=== PATIENT | female | born 1960 | race Caucasian/White ===

== ENCOUNTER 2022-06-09 13:40 | Emergency (ER) | payer MEDICAID, SELFPAY ==
[2022-06-09 13:47] VITALS: BP 109/74; PULSE 103; RESP 16; TEMP 37.1; O2SAT 97; BMI 28.0
--- NOTE | 2022-06-09 14:15 | CRLHL7_ITS ---
For Patients: As a result of the Century Cures Act, medical imaging exams and procedure reports are released immediately into your electronic medical record. You may view this report before your referring provider. If you have questions, please contact your health care provider. CLINICAL HISTORY: Pain TECHNIQUE: A compression venous ultrasound exam was performed of the right lower extremity using gutierrez-scale imaging, color Doppler and spectral Doppler analysis. FINDINGS: Sonographic imaging of the right lower extremity demonstrates normal compressibility and color Doppler venous blood flow within the common femoral vein, deep femoral vein, and the proximal greater saphenous vein. Within the thigh, the femoral vein is patent and compressible. At a lower level, the popliteal and posterior tibial veins also show normal compressibility and color Doppler venous blood flow. Limited imaging of the contralateral groin demonstrates a normal spectral waveform and color Doppler venous blood flow within the left common femoral vein. IMPRESSION: No evidence of deep vein thrombosis within the right lower extremity. Dictated by Joanie Horne MD @ 06/09/2022 3:31:54 PM (Electronically Signed)
--- NOTE | 2022-06-09 14:16 | CRLHL7_ITS ---
For Patients: As a result of the Cures Act, medical imaging exams and procedure reports are released immediately into your electronic medical record. You may view this report before your referring provider. If you have questions, please contact your health care provider. INDICATION: Chest pain. TECHNIQUE: Portable AP chest radiograph. COMPARISON: None available. FINDINGS: No focal pulmonary opacity, pneumothorax, or pleural effusion. Normal cardiac and mediastinal contours. IMPRESSION: No acute cardiopulmonary findings. Dictated by Declan Callaway MD @ 06/09/2022 3:13:40 PM Dictated by: Declan Callaway MD @ 06/09/2022 15:13:50 (Electronically Signed)
--- NOTE | 2022-06-09 14:18 | ED_ITS ---
HPI - General Adult General Date Seen: 06/09/22 Chief complaint: Extremity Pain/Injury, Lower Stated complaint: Pain and Discoloration Post Surgery Time Seen by Provider: 06/09/22 13:41 Source: patient and family History of Present Illness HPI narrative: Patient is a 61-year-old woman who is here with her daughter, she had a right total knee replacement on Friday, 5 days ago at [address] She reports that the surgery had gone well, pain was controlled with Tylenol, and till overnight last night when she developed more significant pain and swelling in the leg. She has had bruising in the groin area where she had the nerve block, has had a little bit of bruising around the knee itself, and now has significant swelling in the calf and foot. She has minimal pain in the knee itself, but now has pain in the leg and foot. She also has some pain in her left chest which is localized just underneath the breast. She did have influenza and COVID several weeks ago, and says she had some pain in this area associated with coughing at the time of her illness. It had improved, but came back yesterday. This pain is worsened with deep breath and with movement, as well as palpation. She has not had fevers or shortness of breath. She denies history of prior DVT. She has had a left knee replacement without incident. Related Data Home Medications Medication Instructions Recorded Confirmed acetaminophen 325 mg tablet mg 06/09/22 albuterol sulfate 2.5 mg/3 mL mg 06/09/22 (0.083 %) solution for nebulization albuterol sulfate 90 mcg/actuation inhalation 06/09/22 aerosol inhaler (Ventolin HFA) aspirin 81 mg tablet,delayed mg 06/09/22 release cefadroxil 500 mg capsule mg 06/09/22 citalopram 20 mg tablet mg 06/09/22 ipratropium 0.5 mg-albuterol 3 mg ml inhalation 06/09/22 (2.5 mg base)/3 mL nebulization soln oxycodone 5 mg tablet mg 06/09/22 Allergies Allergy/AdvReac Type Severity Reaction Status Date / Time cefaclor [From [facility]] Allergy blotches Verified 06/09/22 13:54 and swelling doxycycline Allergy Verified 06/09/22 13:56 Review of Systems Status of ROS: Reports: 10 or more systems reviewed and unremarkable except as noted in History and below [facility] Social History Smoking Status: Never smoker How often do you have a drink containing alcohol: never AUDIT-C Alcohol total score: 0 Non-prescribed substance use: denies use Exam Narrative: Exam Narrative: Vital signs as noted above. In general, an alert, nontoxic woman. Breathing easily. Head: Normocephalic, atraumatic. Eyes: Pupils are equal reactive. Extraocular movements are full. Conjunctivae are normal. ENT: Mucous membranes are moist. Throat is normal. Neck: Supple without lymphadenopathy. Heart: Regular rate and rhythm. No murmur or rub. Lungs: Clear bilaterally. No increased work of breathing, crackles or wheezes. Reproducible chest wall tenderness underneath the left breast without crepitus or subQ air. Abdomen: Soft and nontender. No organomegaly. Extremities: Left lower extremity is notable for multiple varicosities but no edema, erythema, tenderness. On the right, the surgical dressing is in place, there is some bruising noted posteriorly but I do not see any significant erythe ma. Area is nontender. She has a lot of bruising in the medial thigh, there is significant edema in the calf and foot. Pulses intact. Distal CMS normal. Mild tenderness throughout the leg distal to the knee. No erythema, warmth, fluctuance. Neurologic: Patient is alert and oriented to person and place. Speech is fluent. Face is symmetric. Moves all extremities equally. Affect: Normal. Skin: Warm and dry. Well perfused. Const: Vital Signs, click to edit/add: Vital Signs - 24 hr 06/09/22 13:47 06/09/22 15:20 06/09/22 15:53 Temperature 98.7 F 98.6 F Pulse Rate [Right Pulse Oximeter] 103 H 92 Respiratory Rate 16 14 Blood Pressure [Le ft Upper Arm] 109/74 117/72 Pulse Oximetry 97 97 Oxygen Delivery Me thod Room Air Documenting provider has reviewed patient's vital signs: yes Course Course Hospital Course: Initial plan is to do a Doppler of the right lower extremity. With regard to her chest pain, my suspicion for pulmonary embolism if the Doppler is negative is relatively low. She had pain in this area prior to the surgery, pain is clearly reproducible with palpation and movement. O2 sats when I was in the room were 100% on room air. I did elect to do a chest x-ray to rule out the possibility of an interval pneumonia, or to rule out the unlikely possibility of pneumothorax, pleural effusion, etc. By my review, chest x-ray was negative. Final radiology report was likewise negative. I do think this is chest wall related, likely muscular related to coughing. With regard to her leg, she does have evidence of bruising, edema may be related to postoperative bleeding. I do not see anything that suggest cellulitis. She had a right lower extremity Doppler which is read by Radiology as negative for DVT. For now, I recommended elevation, observation. If this is worsening, she should be re-evaluated. Recheck with orthopedic clinic this week, or if they are unavailable, return to the emergency department for worsening swelling, pain, redness, or new symptoms such as fever or chills. Vital Signs Vital signs: Initial Vital Signs Temperature 98.7 F 06/09/22 13:47 Temperature Source Oral 06/09/22 13:47 Pulse Rate 103 H 06/09/22 13:47 Respiratory Rate 16 06/09/22 13:47 Blood Pressure 109/74 06/09/22 13:47 Blood Pressure Mean 85 06/09/22 13:47 Blood Pressure Position Sitting 06/09/22 13:47 Pulse Oximetry 97 06/09/22 13:47 Oxygen Delivery Method 06/09/22 13:47 Vital Signs Temperature 98.7 F 06/09/22 13:47 Pulse Rate 103 H 06/09/22 13:47 Respiratory Rate 16 06/09/22 13:47 Blood Pressure 109/74 06/09/22 13:47 Pulse Oximetry 97 06/09/22 13:47 Oxygen Delivery Method 06/09/22 13:47 Temperature 98.6 F 06/09/22 15:53 Pulse Rate 92 06/09/22 15:20 Respiratory Rate 14 06/09/22 15:20 Blood Pressure 117/72 06/09/22 15:20 Pulse Oximetry 97 06/09/22 15:20 Oxygen Delivery Method 06/09/22 13:47 Discharge Plan Discharge Clinical Impression: Postoperative edema Patient Disposition: Home, Self-Care Condition: Stable Instructions: Leg Edema (ED) Additional Instructions: Continue with Tylenol, elevate as able. If you have worsening swelling, pain, or develop redness, fever, chills, or other new symptoms, call your orthopedic clinic. You should be re-evaluated urgently for these symptoms. If they cannot see you, return to the emergency department. Prescriptions: No Action acetaminophen 325 mg tablet ipratropium-albuterol 0.5 mg-3 mg(2.5 mg base)/3 mL solution for nebulization INHALATION albuterol sulfate 2.5 mg /3 mL (0.083 %) solution for nebulization Label Comments: USE 3 ML IN NEBULIZER EVERY 6 HOURS NEEDED FOR SHORTNESS OF BREATH aspirin 81 mg tablet,delayed release (DR/EC) cefadroxil 500 mg capsule citalopram 20 mg tablet Label Comments: TAKE 1 TABLET BY MOUTH IN THE MORNING albuterol sulfate [Ventolin HFA] 90 mcg/actuation HFA aerosol inhaler INHALATION Label Comments: INHALE 1 TO 2 PUFFS BY MOUTH EVERY 4 HOURS WHILE AWAKE oxycodone 5 mg tablet Follow Up/Referrals: Matt Harkins MD [Primary Care Provider] - Stand Alone Forms: [employer] Info Instructions
[2022-06-09] MEDS: ACETAMINOPHEN 500 MG TABLET 1000 MG PO (14:33)
[2022-06-09 15:20] VITALS: BP 117/72; PULSE 92; RESP 14; O2SAT 97
[2022-06-09 15:53] VITALS: TEMP 37
== END 2022-06-09 16:22 | disposition home or self-care (01) ==
PROVIDERS: Emergency Provider Emergency Medicine; PCP Orthopaedic Surgery
DX: R60.0 Localized edema (principal); L76.82 Other postprocedural complications of skin and subcutaneous tissue
CPT/HCPCS: 71045; 93971; 99284; A9270

== ENCOUNTER 2022-07-15 13:30 | Outpatient (RCR) | payer MEDICAID, SELFPAY | END 2022-10-24 16:06 | disposition home or self-care (01) | PROVIDERS: PCP Orthopaedic Surgery; Visit Provider Orthopaedic Surgery | DX: Z96.651 Presence of right artificial knee joint (principal); Z51.89 Encounter for other specified aftercare | CPT/HCPCS: 97110; 97112; 97116; 97140; 97162 ==

== ENCOUNTER 2023-02-24 09:56 | Emergency (ER) | payer MEDICAID, SELFPAY ==
[2023-02-24 10:08] VITALS: BP 152/93; PULSE 82; RESP 18; TEMP 36.7; O2SAT 97; BMI 25.7
[2023-02-24 10:22] LABS: Appearance Urine Clear (Clear); Bilirubin Urine Negative (Negative); Blood Urine Trace-intact (Negative); Color Urine Yellow (Yellow); Glucose Urine Negative (Negative); Ketones Urine Negative (Negative); Leukocyte Esterase Urine 1+ (Negative); Nitrite Urine Negative (Negative); Protein Urine Negative (Negative); Urobilinogen Urine 0.2 (0.2-1.0)
--- NOTE | 2023-02-24 10:31 | ED_ITS ---
HPI - Nausea/Vomiting/Diarrhea General Chief complaint: Diarrhea Stated complaint: watery diarrhea, vomiting, rash on hand Time Seen by Provider: 02/24/23 10:19 History of Present Illness HPI Narrative: This 62-year-old female called in to clinic and was told to come here. She has diarrhea with vomiting over the past 3 weeks. She reports intense crampy abdominal pain when passing diarrhea or vomiting. She does not report any fevers. She is not on any medications. She did have a knee replacement a few months ago and did take an antibiotic for a brief time afterwards. She does not report any blood in the toilet. Related Data Home Medications Medication Instructions Recorded Confirmed acetaminophen 325 mg tablet mg 06/09/22 albuterol sulfate 2.5 mg/3 mL mg 06/09/22 (0.083 %) solution for nebulization albuterol sulfate 90 mcg/actuation inhalation 06/09/22 aerosol inhaler (Ventolin HFA) aspirin 81 mg tablet,delayed mg 06/09/22 release cefadroxil 500 mg capsule mg 06/09/22 citalopram 20 mg tablet mg 06/09/22 ipratropium 0.5 mg-albuterol 3 mg ml inhalation 06/09/22 (2.5 mg base)/3 mL nebulization soln oxycodone 5 mg tablet mg 06/09/22 Previous Rx's Medication Instructions Recorded diphenoxylate-atropine 2.5 1 tab PO DAILY #10 tabs 02/24/23 mg-0.025 mg tablet (Lomotil) ondansetron HCl 4 mg tablet 4 mg PO Q6H #20 tabs 02/24/23 Allergies Allergy/AdvReac Type Severity Reaction Status Date / Time cefaclor [From [facility]] Allergy blotches Verified 06/09/22 13:54 and swelling doxycycline Allergy Verified 06/09/22 13:56 Review of Systems Status of ROS: Reports: 10 or more systems reviewed and unremarkable except as noted in History and below Narrative: Constitutional: No fevers. She reports a 6 lb weight loss. Eyes: No discharge. No vision changes. HENT: No congestion, no sore throat, no ear pain. Cardiovascular: No chest pain, no palpitations. Respiratory: No shortness of breath, no wheezes, no cough. Gastrointestinal: Crampy abdominal pain that occurs when vomiting or diarrhea. Genitourinary: No dysuria, no hematuria. Musculoskeletal: Normal range of motion. Skin: No rashes, no pruritis. Neurological: No dizziness, weakness, sensory change, speech change. Endo/Heme/Allergies: No bruising or bleeding. No polydipsia. Pysch: no suicidality, no anxiety, no insomnia. All other systems reviewed and are negative. [facility] Social History Smoking Status: Never smoker How often do you have a drink containing alcohol: never AUDIT-C Alcohol total score: 0 Non-prescribed substance use: denies use service: No Exam Narrative: Exam Narrative: Constitutional: Well-developed, well-nourished, no acute distress. HEENT: Normocephalic, atraumatic. Neck: Normal range of motion. Nontender. Supple. Heart: Regular. No murmurs. Normal rate. Intact distal pulses. Lungs: Clear to auscultation. No chest discomfort. No wheezes, rhonchi, or rales. Abdomen: Normal bowel sounds. Nontender. No rebound tenderness. Genitalia: Deferred. Back: No midline tenderness. Normal range of motion. Extremities: Normal range of motion. No injury. Skin: Intact. No rash. Warm. No erythema or pallor. Neurologic: No altered sensation. No weakness. Alert and oriented. Psychiatric: No suicidality. No anxiety or depression. No insomnia. Nursing notes and vitals signs are reviewed. Const: Vital Signs, click to edit/add: Vital Signs - 24 hr 02/24/23 10:08 Temperature 98.1 F Pulse Rate [Right Pulse Oximeter] 82 Respiratory Rate 18 Blood Pressure [Ri ght Upper Arm] 152/93 H Pulse Oximetry 97 Oxygen Delivery Me thod Room Air Course Vital Signs Vital signs: Initial Vital Signs Temperature 98.1 F 02/24/23 10:08 Temperature Source Temporal Artery Scan 02/24/23 10:08 Pulse Rate 82 02/24/23 10:08 Respiratory Rate 18 02/24/23 10:08 Blood Pressure 152/93 H 02/24/23 10:08 Blood Pressure Mean 112 H 02/24/23 10:08 Blood Pressure Position Sitting 02/24/23 10:08 Pulse Oximetry 97 02/24/23 10:08 Oxygen Delivery Method Room Air 08/28/23 10:08 Vital Signs Temperature 98.1 F 02/24/23 10:08 Pulse Rate 82 02/24/23 10:08 Respiratory Rate 18 02/24/23 10:08 Blood Pressure 152/93 H 02/24/23 10:08 Pulse Oximetry 97 02/24/23 10:08 Oxygen Delivery Method Room Air 02/24/23 10:08 Temperature 98.1 F 02/24/23 10:08 Pulse Rate 82 02/24/23 10:08 Respiratory Rate 18 02/24/23 10:08 Blood Pressure 152/93 H 02/24/23 10:08 Pulse Oximetry 97 02/24/23 10:08 Oxygen Delivery Method Room Air 02/24/23 10:08 MDM - Nausea/Vomiting/Diarrhea MDM Narrative Medical decision making narrative: This patient comes in reporting persistent vomiting and diarrhea symptoms for the past few weeks. An IV was established and she received a L of normal saline intravenously along with Zofran 4 mg. Her abdominal exam is reassuring. I did discuss the role of CT imaging which the patient declined in less indicated with lab results. Lab results do returned with reassuring findings also. This patient is okay to return home and did received prescription for Zofran and Lomotil. I advised her to use Imodium preferably for managing diarrhea but Lomotil can be used if needed. Lab Data Labs: Lab Results 02/24/23 02/24/23 Range/Units 10:15 10:50 WBC 4.97 (4.50-11.00) K/uL RBC 4.85 (4.00-5.20) m/uL Hgb 12.2 (12.0-16.0) gm/dL Hct 37.7 (33.0-51.0) % MCV 78 L (80-100) fL MCH 25 L (26-34) pg MCHC 32 (32-36) gm/dL RDW Coeff of Murali 12.6 (11.5-15.5) % Plt Count 312 (140-440) K/uL Neut % (Auto) 57.1 (42.0-72.0) % Lymph % (Auto) 29.0 (20-44) % [place] % (Auto) 10.1 (0.0-11.0) % Eos % (Auto) 3.2 (0.0-7.0) % Baso % (Auto) 0.0 (0.0-3.0) % Neut # (Auto) 2.80 (1.7-7.0) K/uL Lymph # (Auto) 1.40 (0.90-2.90) K/uL [place] # (Auto) 0.50 (0.00-0.90) K/UL Eos # (Auto) 0.20 (0.00-0.50) K/uL Baso # (Auto) 0.00 (0.00-0.30) K/uL Abs Immat Gran (auto) 0.00 (0.00-0.30) K/uL Imm/Tot Granulo (auto) 0.2 % Urine Color Yellow (Yellow) Urine Appearance Clear (Clear) Urine pH 7.0 (5.0-8.5) Ur Specific [place] 1.010 (1.000-1.030) Urine Protein Negative (Negative) Urine Glucose (UA) Negative (Negative) Urine Ketones Negative (Negative) Urine Blood Trace-intact A (Negative) Urine Nitrite Negative (Negative) Urine Bilirubin Negative (Negative) Urine Urobilinogen 0.2 (0.2-1.0) Ur Leukocyte Esterase 1+ A (Negative) Urine RBC 0-2 (0-2) Urine WBC 5-10 A (0-5) Ur Squamous Epith Cells Few (None-Few) Urine Bacteria Few A (None) Discharge Plan Discharge Clinical Impression: Gastroenteritis Patient Disposition: Home, Self-Care Condition: Stable Additional Instructions: Take medications as prescribed and needed. Is recommended to take a proton pump inhibitor such as omeprazole. Follow-up with primary MD or Gastroenterology Clinic if not improving. Return if worsening. Prescriptions: New ondansetron HCl 4 mg tablet 4 mg PO Q6H Qty: 20 0RF diphenoxylate-atropine [Lomotil] 2.5-0.025 mg tablet 1 tab PO DAILY Qty: 10 0RF No Action acetaminophen 325 mg tablet ipratropium-albuterol 0.5 mg-3 mg(2.5 mg base)/3 mL solution for nebulization INHALATION albuterol sulfate 2.5 mg /3 mL (0.083 %) solution for nebulization Patient Comments: USE 3 ML IN NEBULIZER EVERY 6 HOURS NEEDED FOR SHORTNESS OF BREATH aspirin 81 mg tablet,delayed release (DR/EC) cefadroxil 500 mg capsule citalopram 20 mg tablet Patient Comments: TAKE 1 TABLET BY MOUTH IN THE MORNING albuterol sulfate [Ventolin HFA] 90 mcg/actuation HFA aerosol inhaler INHALATION Patient Comments: INHALE 1 TO 2 PUFFS BY MOUTH EVERY 4 HOURS WHILE AWAKE oxycodone 5 mg tablet Follow Up/Referrals: Matt Harkins MD [Primary Care Provider] - Stand Alone Forms: [employer] Info Instructions
[2023-02-24 10:48] LABS: Bacteria Urine Few; RBC Urine 0-2 (0-2); Squamous Epithelial Cell Urine Few (None-Few)
[2023-02-24 12:18] LABS: Hematocrit 37.7 % (33.0-51.0); Hemoglobin* 12.2 gm/dL (12.0-16.0); Mean Corpuscular HGB Conc 32 gm/dL (32-36); Mean Corpuscular Hemoglobin 25 pg (26-34); Mean Corpuscular Volume 78 fL (80-100); Neutrophils Percent Auto 57.1 % (42.0-72.0); Platelet Count* 312 K/uL (140-440); RDW Coefficient of Variation % 12.6 % (11.5-15.5); Red Blood Count 4.85 m/uL (4.00-5.20); White Blood Count* 4.97 K/uL (4.50-11.00)
[2023-02-24 12:19] LABS: Eosinophils Percent Auto 3.2 % (0.0-7.0); Immature Granulocytes Pct Auto 0.2 %; Monocytes Percent Auto 10.1 % (0.0-11.0); Slide Review Reflex No
--- NOTE | 2023-02-24 13:54 | ED.NURSE ---
computers down, pt dc'd at 1233 with verbal DC by freddy
--- NOTE | 2023-02-24 14:07 | ED.NURSE ---
1233: computers down, verbal DC given, IV dc'd
[2023-02-24 15:10] LABS: Anion Gap 10 mEq/L (7-15); Blood Urea Nitrogen* 10 mg/dL (7-30); Carbon Dioxide* 26 mmol/L (20-32); Chloride* 102 mmol/L (96-114); Creatinine* 0.7 mg/dL (0.5-1.5); Est. Creatinine Clearance* 47.01; Estimated Glomerular Filt Rate 97 ml/min; Potassium* 3.8 mmol/L (3.6-5.1); Sodium* 138 mmol/L (135-149)
[2023-02-24 15:11] LABS: Albumin* 4.5 g/dL (3.3-5.0); Aspartate Amino Transferase* 24 U/L (12-35); Bilirubin Direct* 0.1 mg/dL (0.0-0.5); Bilirubin Total* 0.8 mg/dL (0.1-1.5); Calcium* 10.1 mg/dL (8.4-10.6); Glucose* 86 mg/dL (60-115); Total Protein* 7.5 g/dL (6.0-8.3)
[2023-02-24 15:12] LABS: Alanine Aminotransferase* 19 U/L (4-35); Alkaline Phosphatase* 112 U/L (40-150); C Reactive Protein* < 0.5 mg/dL (0.5-1.0)
[2023-02-25 06:29] LABS: Lipase* 46 U/L (23-300)
== END 2023-02-24 12:33 | disposition home or self-care (01) ==
PROVIDERS: Emergency Provider Emergency Medicine Emergency Medical Services; PCP Orthopaedic Surgery
DX: K52.9 Noninfective gastroenteritis and colitis, unspecified (principal)
CPT/HCPCS: 36415; 80048; 80076; 81001; 83690; 84443; 85025; 86140; 87086; 99283; 99284

== ENCOUNTER 2023-08-29 08:46 | Outpatient (RCR) | payer MEDICAID, SELFPAY | END 2023-10-29 14:38 | disposition home or self-care (01) | PROVIDERS: PCP Orthopaedic Surgery; Visit Provider Physician Assistant | DX: S76.812D Strain of other specified muscles, fascia and tendons at thigh level, left thigh, subsequent encounter (principal); Z98.890 Other specified postprocedural states; M25.552 Pain in left hip; M25.562 Pain in left knee; M25.652 Stiffness of left hip, not elsewhere classified; R26.2 Difficulty in walking, not elsewhere classified; M62.81 Muscle weakness (generalized); Z51.89 Encounter for other specified aftercare | CPT/HCPCS: 97110; 97163 ==

== ENCOUNTER 2024-03-11 07:32 | Day surgery (SDC) | payer MEDICARE, OTHER, SELFPAY ==
[2024-03-11] VITALS (15 sets, daily range): BP systolic 92–115; BP diastolic 56–87; PULSE 72–85; RESP 12–16; TEMP 36.4–36.9; O2SAT 92–97; BMI 29.4
[2024-03-11] MEDS: LACTATED RINGERS 1000 ML 1,000 ML 100 ML IV (07:55)
--- NOTE | 2024-03-11 09:00 | CRLHL7_ITS ---
For Patients: As a result of the Century Cures Act, medical imaging exams and procedure reports are released immediately into your electronic medical record. You may view this report before your referring provider. If you have questions, please contact your health care provider. NUCLEAR MEDICINE CHEST RIGHT SENTINEL LYMPH NODE INJECTION, 03/11/2024 INDICATION: Right-sided breast cancer. Injection for sentinel lymph node scintigraphy. Informed consent was obtained by the onset staff. They discussed the risks and benefits of the procedure. The patient agreed to proceed. Utilizing sterile technique and 1 percent Xylocaine for local anesthetic, 530 microcuries of technetium filtered sulfur colloid was injected within an intradermal location superolateral to the right nipple areolar complex. The patient tolerated the injection well. No immediate complications. No subsequent imaging. IMPRESSION: Technically successful right breast injection for sentinel lymph node scintigraphy. PRABHAKAR JONES M.D. Transcribed: 10:04 a.m. [email or web address] JR/Dictated by: Prabhakar Jones MD @ 03/11/2024 9:40:00 AM (Electronically Signed)
--- NOTE | 2024-03-11 09:15 | CRLHL7_ITS ---
For Patients: As a result of the Century Cures Act, medical imaging exams and procedure reports are released immediately into your electronic medical record. You may view this report before your referring provider. If you have questions, please contact your health care provider. RIGHT BREAST WIRE LOCALIZATION USING ULTRASOUND GUIDANCE CLINICAL HISTORY: Infiltrating ductal carcinoma. LATERALITY: RIGHT breast. LESION: Hypoechoic shadowing nodule 4 o`clock 5 cm from the nipple measuring 1 cm. LOCALIZATION WIRE: Kopans hook wire. TECHNIQUE: The localization wire was placed using real-time ultrasound guidance with image documentation. Cranial-caudal and medial-lateral digital mammograms were obtained after localization wire placement. CONSENT and TIME OUT: The procedure, risks, and alternatives were explained to the patient and a consent was signed. [place] Protocol was followed including pre-procedure verification that relevant information/documentation was available, reviewed and properly matched to the patient; consent accurate and complete; and equipment and supplies available. Time Out was conducted just prior to starting procedure to verify the four required elements: patient identity, correct side/site marked (if applicable), procedure, relevant images/results properly labeled and displayed (if applicable). PROCEDURE: The skin was prepped with ChloraPrep and 5 cc of 1% lidocaine was injected for local anesthesia. The localization wire was placed within or near the targeted breast lesion using ultrasound guidance. The patient tolerated the procedure well. PROXIMITY OF WIRE TO LESION: The wire is present within the lesion adjacent to the clip. IMPRESSION: Successful breast wire localization. ACR not applicable Dictated by Jac Subramanian MD @ 03/11/2024 1:11:20 PM /vale/nixon SP/Dictated by: Jac Subramanian MD @ 03/11/2024 1:11:00 PM (Electronically Signed)
--- NOTE | 2024-03-11 09:30 | W.PM.H&PU ---
History & Physical Update History & Physical Update H&P Reviewed and patient assessed: No changes noted
--- NOTE | 2024-03-11 10:00 | CRLHL7_ITS ---
For Patients: As a result of the Century Cures Act, medical imaging exams and procedure reports are released immediately into your electronic medical record. You may view this report before your referring provider. If you have questions, please contact your health care provider. PLEASE SEE RIGHT BREAST ULTRASOUND-GUIDED WIRE LOCALIZATION OF SAME DAY. CRL:sp SP/Dictated by: Jac Subramanian MD @ 03/11/2024 1:11:00 PM (Electronically Signed)
[2024-03-11] MEDS: ISOSULFAN BLUE 5 ML VIAL INJECTION (10:23)
[2024-03-11] MEDS: CLINDAMYCIN 900 MG/50 ML-D5W 900 MG/50 ML PIGGYBACK 100 MG IVPB (10:25)
--- NOTE | 2024-03-11 10:45 | CRLHL7_ITS ---
For Patients: As a result of the Cures Act, medical imaging exams and procedure reports are released immediately into your electronic medical record. You may view this report before your referring provider. If you have questions, please contact your health care provider. RIGHT BREAST SPECIMEN CLINICAL HISTORY: Lumpectomy. COMPARISON: 02/11/2024. FINDINGS: Two views of the RIGHT breast specimen submitted. The specimen contains the biopsied mass, biopsy clip and localization wire. IMPRESSION: Specimen contains the localization wire, biopsy clip and biopsied mass. ACR not applicable Dictated by Jac Subramanian MD @ 03/11/2024 1:07:29 PM /sp/nixon SP/Dictated by: Jac Subramanian MD @ 03/11/2024 1:07:00 PM (Electronically Signed)
[2024-03-11] MEDS: LIDOCAINE 1% MDV 20 ML INJECTION (11:10)
[2024-03-11] MEDS: BUPIVACAINE 0.25% 30 ML INJECTION (11:10)
--- NOTE | 2024-03-11 11:26 | PM.GSPRC ---
Operative Note Date of procedure: 03/11/24 Pre-op diagnosis: Invasive ductal carcinoma, right breast Post-op diagnosis: Same Type of Procedure: 1. Injection of radionucleotide tracer 2. lumpectomy of the right breast 3. [place] lymph node biopsy Indications: Patient is a 63-year-old female with new diagnosis invasive ductal carcinoma of the right breast. Please see consultation note for full discussion. Risks and benefits of operative intervention were discussed at length with the patient. Risks included but was not limited to: Bleeding, infection, risk of damage to surrounding structures, possible need for additional procedures, risk of injury to nerves within the axilla, seroma or hematoma and postoperative complications such as pneumonia, pulmonary emboli or CO. All questions and concerns were addressed with the patient agreeing to proceed. Procedure Description: Prior to arrival in the operating room, I injected a radial colloid tracer into the right breast, periarea lower. The patient was then taken to radiology where a wire was placed to localize the previously placed clip. The patient was then brought to the operating room where anesthesia was induced. I injected 3 ml of lymphazurin blue and performed breast massage for a period of 5 minutes. The right breast and axilla were prepped and draped in the usual sterile fashion. Timeout was confirmed. Local anesthesia was infiltrated into a curvilinear incision in the 4:00 position at the location of the tip of the wire. Using electrocautery, the segment of breast tissue containing the tip of the wire was excised. This was sent for evaluation. Radiology called back and confirmed that the clip, and wire were present within the specimen. Pathology then called back and confirmed that the margins were appropriate. We then elected to perform the sentinel node aspect of the procedure. Using the neoprobe, the area of maximal counts was identified. Local anesthesia was infiltrated into the skin and an incision was made. This was carried down to the subcutaneous tissue using electrocautery. Using a combination of blunt dissection and electrocautery, two hot and blue node were resected. Care was taken to clip the lymphatics. Both nodes were sent as one specimen. No additional nodes were identified. The tissue was sent to pathology for permanent evaluation. The wounds were irrigated and all irrigant suctioned from the wound. Additional local anesthesia was infiltrated. The wounds were then closed in layers using absorbable suture, and Dermbond was placed over the wounds. An Gwyn wrap was placed for compression. The patient was awakened without incident and taken to PACU in stable condition. Sponge, needle and instrument counts were correct x3 at the termination of the case. Findings: Wire localized right breast mass. Pathology evaluation with margins negative. Right axillary sentinel node identified and sent for permanent. Anesthesia: GETA Surgeon: Blanca Valdez MD Estimated blood loss (mL): 5 Additional Specimen Information: 1. Right breast mass 2. Right axillary lymph node Condition: stable Disposition: PACU [place] Node Biopsy for Breast Cancer Operation Performed with Curative Intent: Yes Tracers used to Identify sentinel nodes in the upfront surgery (non-neoadjuvant) setting: Dye and Radioactive Tracer Tracers used to identify sentinel nodes in the neoadjuvant setting: N/A All nodes (colored or non-colored) present at the end of a dye filled lymphatic channel were removed: Yes All significantly radioactive nodes were removed: Yes All palpably suspicious nodes were removed: Yes Biopsy proven positive nodes marked with clips prior to chemotherapy were identified and removed: Not Applicable
--- NOTE | 2024-03-11 11:28 | W.ANESCHARGE ---
Anesthesia Charges Start Date/Time Anesthesia Start Date: 03/11/24 Anesthesia Start Time: 10:04 Stop Date/Time Anesthesia Stop Date: 03/11/24 Anesthesia Stop Time: 11:35
[2024-03-11] MEDS: ALBUTEROL SULFATE 2.5 MG/3 ML VIAL.NEB NEB (11:37)
--- NOTE | 2024-03-11 11:45 | W.ANESCHARGE ---
Anesthesia Charges Start Date/Time Anesthesia Start Date: 03/11/24 Anesthesia Start Time: 10:04 Stop Date/Time Anesthesia Stop Date: 03/11/24 Anesthesia Stop Time: 11:35
== END 2024-03-11 13:10 | disposition home or self-care (01) ==
PROVIDERS: PCP Orthopaedic Surgery; Visit Provider Surgery
PROC: (CPT 19125; principal; 2024-03-11 10:15)
PROC: (CPT 19125; 2024-03-11 10:15)
DX: C50.311 Malignant neoplasm of lower-inner quadrant of right female breast (principal); Z17.0 Estrogen receptor positive status [ER+]
CPT/HCPCS: 19125; 38525; 00400; 01610; 19285; 38792; 77065; 88307; 88342; 94640; A9541; C1769; J0665; J0736; J1100; J1630; J1885; J2371; J2704; J3010; J3490; J7120

== ENCOUNTER 2024-05-05 14:15 | Outpatient (CLI) | payer MEDICARE, SELFPAY ==
--- NOTE | 2024-05-05 14:30 | CRLHL7_ITS ---
For Patients: As a result of the Century Cures Act, medical imaging exams and procedure reports are released immediately into your electronic medical record. You may view this report before your referring provider. If you have questions, please contact your health care provider. DXA BONE MINERAL DENSITY STUDY Current height (in): 63.0. Weight (lb): 160.0. Menopause age: 48. Ethnicity: White. 1. Have you had a previous hip or vertebral fracture? No. 2. Have you had any fractures during your adult life which did not result from significant trauma (e.g., auto accident)? Yes. 3. Did either of your parents have a hip fracture? No. 4. Do you smoke? No. 5. Have you ever taken Glucocorticoids? No. 6. Do you have rheumatoid arthritis? No. 7. Do you have secondary osteoporosis? No. 8. Do you drink 3 or more alcoholic drinks per day? No. 9. Are you being treated for osteoporosis? No. 10. Have you ever taken any of the following medications: Actonel, Evista, Fosamax, Miacalcin, Reclast, Boniva, Forteo, HRT (i.e. estrogen/hormone therapy), Protelos, Prolia, Vitamin D, Calcium, other ??? please specify. ANSWER: No. 11. Do you have any of the following medical conditions: Anorexia or bulimia, asthma or emphysema, end stage renal disease, hyperparathyroidism, any seizure disorders, cancer, inflammatory bowel diseases, hysterectomy, other ??? please specify. ANSWER: Yes, Asthma, Cancer 12. What was your maximum height (inches)? 65. 13. Do you perform weight bearing exercise regularly? No. 14. Do you regularly consume dairy products? No. 15. Do you drink caffeinated beverages? Yes. If female: 16. At what age did your period start? 14. 17. Are you premenopausal? No. 18. How many full term pregnancies have you had? 2. 19. Have you ever missed your period for more than 6 months in a row (not including or menopause)? No. TECHNIQUE: Bone mineral density study was performed using the [employer]. FINDINGS: The results of the study expressed as bone mineral density (BMD) are as follows: Lumbar spine L1 to L4: BMD: 0.784 g/cm2. T-score: -2.4. Z-score: -0.6. Neck Left: BMD: 0.513 g/cm2. T-score:-3.0 . Z-score: -1.5. Right: BMD: 0.676 g/cm2. T-score: -1.6 . Z-score: -0.0. Total Left: BMD: 0.615 g/cm2. T-score: -2.7 . Z-score:-1.4. Right: BMD: 0.648 g/cm2. T-score: -2.4 . Z-score: -1.2. IMPRESSION: Osteoporosis. *Comparison exams done prior to 11/2019 were performed on different unit, [facility]. Serafin SALEH:chun Transcribed: 3:56 p.m. [email or web address] JR/Dictated by: Christian Rodriguez MD @ 05/09/2024 10:32:00 PM (Electronically Signed)
== END 2024-05-05 14:16 | disposition home or self-care (01) ==
LOC: RAD 14:16
PROVIDERS: PCP Family Medicine; Visit Provider Internal Medicine Hematology & Oncology
DX: C50.919 Malignant neoplasm of unspecified site of unspecified female breast (principal); M81.0 Age-related osteoporosis without current pathological fracture
CPT/HCPCS: 77080

== ENCOUNTER 2024-09-09 11:10 | Outpatient (RCR) | payer MEDICARE, SELFPAY ==
--- NOTE | 2024-03-25 09:43 | ONC.NURNOTE ---
Call to patient to discuss plan of care. Patient informed that we need to re-schedule her consult for today because our provider is out sick. We discussed next step would be to request Oncotype Dx testing to assess recurrence risk and chemotherapy benefit. Patient will see Dr. Whitmore in consultation 04/06 to review results. Oncotype testing requested via [facility] online portal. Patient verbalizes understanding.
--- NOTE | 2024-04-07 11:54 | ONC.NURNOTE ---
Radiation Oncology referral faxed to [place], . They will call patient to schedule. We will schedule oncology follow up when radiation plan is in place.
--- NOTE | 2024-04-21 13:50 | ONC.NURNOTE ---
Call to patient in follow up to her plan of care. Patient states she has elected to not do radiation therapy. Follow up with Dr. Whitmore scheduled for 05/03 to review DEXA and discuss endocrine therapy.
--- NOTE | 2024-05-20 15:21 | ONC.NURNOTE ---
Call to patient to see how she is tolerating the Tamoxifen. Patient states she has decided not to take endocrine therapy. She is worried about the impact to her quality of life. She understands the risk associated with not taking the medication. Follow up with us pushed out to Jul 2024.
--- NOTE | 2024-08-02 13:15 | ONC.NURNOTE ---
Pt cancelled her appt this am with [facility], pt states not feeling well this morning. Pt also stated she had a punch biopsy at [facility] and never started the tamoxifen. Updated [facility] and pt will need to return to clinic for a breast exam. Pt called and scheduled for follow up next month.
--- NOTE | 2024-09-02 13:40 | ONC.NURNOTE ---
Patient was a No Show for her follow up visit this morning. Spoke with patient and she reports she completely forgot about it until it was too late. Patient rescheduled to 09/09.
== END 2024-10-03 23:59 | disposition home or self-care (01) ==
LOC: CCIC 11:10
PROVIDERS: PCP Family Medicine; Visit Provider Internal Medicine Hematology & Oncology
DX: C50.911 Malignant neoplasm of unspecified site of right female breast (principal); Z17.0 Estrogen receptor positive status [ER+]
CPT/HCPCS: 99202; 99205; 99213; 99214; G0463